=== PATIENT | female | born 2000 | race Caucasian/White ===

== ENCOUNTER 2023-06-03 11:28 | Outpatient (CLI) | payer BC ==
[~2023-06-03] VITALS: Ht 162.5 cm; Wt 90.5 kg
== END 2023-06-03 13:19 | disposition home or self-care (01) ==
LOC: PREOP 11:28
PROVIDERS: ATTEND Surgery
DX: Z01.818 Encounter for other preprocedural examination (principal)

== ENCOUNTER 2023-06-06 10:43 | Day surgery (SDC) | payer BC ==
[2023-06-06] VITALS (8 sets, daily range): BP systolic 78–128; BP diastolic 42–82
[~2023-06-06] VITALS: Ht 162.5 cm; Wt 90.5 kg
[2023-06-06] MEDS ORDERED: LACTATED RINGERS 1,000 ML 1,000 ML IV STA (10:52)
[2023-06-06] MEDS ORDERED: HURRICAINE EXT TUBE (BENZOCAINE) XX PRN (11:00)
--- NOTE | 2023-06-06 11:04 | Progress Note-Pre Operative ---
Pre-Operative Progress Note Date of Available H&P: Jun 03, 2023 Date H&P Reviewed: Jun 06, 2023 Time H&P Reviewed: 11:04 History & Physical: H&P Reviewed, Patient Examed, No changes noted Pre-Operative Diagnosis: RUQ pain, Rectal bleed IBAN ALLEN DO Jun 06, 2023 11:04
[2023-06-06] MEDS ORDERED: MIDAZOLAM INJ 2 MG/2 ML VIAL ONE (11:25)
[2023-06-06] MEDS ORDERED: MIDAZOLAM INJ 2 MG/2 ML VIAL IV ONE (11:30)
--- NOTE | 2023-06-06 12:11 | Anesthesia-General Post-Op ---
MAC Patient Condition Mental Status/LOC: Same as Preop Cardiovascular: Satisfactory Nausea/Vomiting: Absent Respiratory: Satisfactory Pain: Controlled Complications: Absent Post Op Complications Complications None Follow Up Care/Instructions Patient Instructions None needed. Anesthesiology Discharge Order Discharge Order Patient is doing well, no complaints, stable vital signs, no apparent adverse anesthesia problems. No complications reported per nursing. MERLINE DONNELLY CRNA Jun 06, 2023 12:11
--- NOTE | 2023-06-06 12:14 | Progress Note-Post Operative ---
Post-Operative Progess Note Surgeon (s)/Shoe Patternmaker (s) Surgeon IBAN ALLEN DO Shoe Patternmaker: Andriot MSIII Pre-Operative Diagnosis RUQ pain, Rectal bleed Post-Operative Diagnosis Gastritis Esophagitis Polyp int hemorrhoids Procedure & Operative Findings Date of Procedure 06/06/23 Procedure Performed/Findings EGD with biopsy Colonoscopy with cold biopsy PROCEDURE NOTE: After informed consent was obtained, the patient was brought to the endoscopy suite, placed in bed in left lateral decubitus position. She was administered IV sedation by the PRE PRESS PROOFER who then monitored vitals the entire time, heart rate, blood pressure and pulse ox and the scope was inserted down the mouth through the esophagus into the stomach. On the way down, noted some mild esophagitis, took a picture, pushed into the stomach, pushed past the antrum into the duodenum. Duodenum looked good. Pulled back and did a biopsy of antrum, then retroflexed the scope, did not see a hiatal hernia, took a picture and then pulled the scope into the GE junction. I looked down and saw some inflammation of the body of the stomach so I did a biopsy and then did a biopsy of the GE junction. Pushed the scope back into the stomach, suctioned all the air out of the stomach. At this point pulled the scope up the esophagus and out the mouth. Switched camera, switched gloves, went down below and started the colonoscopy. Pushed all the way to about 130 cm and pushed into the cecum, took a picture of appendiceal orifice and noted the ileocecal valve. Then slowly withdrew the scope insufflating to look circumferentially at the eduardo starting in the cecum, up the ascending colon to the hepatic flexure, then down the transverse colon to the splenic flexure, into the descending colon and then into the sigmoid. I saw a very small polyp, took a picture and then did a cold biopsy of the polyp. I did not see any inflammation, ulcers or diverticula in the colon. Finally, into the rectal vault and retroflexed the scope. Took picture of very small internal hemorrhoids. The patient tolerated the procedure and she recovered in the endoscopy suite. Recommended for repeat colonoscopy in 10 years Anesthesia Type IV Sedation by PRE PRESS PROOFER Estimated Blood Loss Estimated blood loss (mL): scant Specimens/Packing Specimens Removed antral bx body of stomach bx GE jxn bx sigmoid polyp IBAN ALLEN DO Jun 06, 2023 12:14
--- NOTE | 2023-06-06 12:15 | Endoscopy Discharge Instruct ---
Endo Procedure/Findings Findings 1.: Gastritis 2.: Other Findings (Mild Esophagitis) 3.: Polyp 4.: Internal Hemorrhoids Discharge Instructions - Activity: You might feel a little sleepy until tomorrow. This is due to the me dicine you received to relax you. Until tomorrow, you should: NOT drive a car, operate machinery or power tools. NOT drink any alcoholic beverages. NOT make any important decisions or sign importortant papers. Do not return to work until tomorrow, unless otherwise instructed. Resume previous activities tomorrow. Diet: Start by taking liquids. If you tolerate liquids, advance to solid food. 1.: Colonscopy in 10 years Notify Physician - If you experience excessive bleeding, unusual abdominal pain, fever, or chest pain, contact your doctor immediately. Follow-Up: Other Follow up in my office in one week IBAN ALLEN DO Jun 06, 2023 12:15
== END 2023-06-06 13:07 | disposition home or self-care (01) ==
LOC: ENDO 10:43
PROVIDERS: ATTEND Surgery
DX: K29.50 Unspecified chronic gastritis without bleeding (principal); K20.90 Esophagitis, unspecified without bleeding; K63.5 Polyp of colon; K62.5 Hemorrhage of anus and rectum; E66.9 Obesity, unspecified; F17.210 Nicotine dependence, cigarettes, uncomplicated; F17.290 Nicotine dependence, other tobacco product, uncomplicated; Z68.34 Body mass index [BMI] 34.0-34.9, adult
CPT/HCPCS: 84703

== ENCOUNTER → 2023-06-16 | Outpatient (CLI) | payer BC ==
[~2023-06-16] MED LIST: CATHETER FLUSH 10 ML SYR IVP PRN
--- NOTE | 2023-06-16 14:21 | Diagnostic Imaging Report ---
INDICATION: Right upper quadrant pain. TECHNIQUE: Patient was administered 5.5 mCi technetium-99m Choletec, and imaging over the abdomen was performed. At 45 minutes, the patient ingested 8 ounces of Ensure, and a gallbladder ejection fraction was calculated. FINDINGS: There is homogeneous uptake of activity by the liver with prompt excretion of activity into the common duct and gallbladder. There is normal passage of activity into the small bowel. Gallbladder ejection fraction is normal at 59%. IMPRESSION: Normal HIDA scan and gallbladder ejection fraction. Dictated by: Dictated on workstation # [id number]
== END ==
LOC: CARD 11:21
PROVIDERS: ATTEND Surgery
DX: R10.11 Right upper quadrant pain (principal)
CPT/HCPCS: 78227; A9537